=== PATIENT | female | born 1975 ===

== ENCOUNTER 2018-01-17 13:34 | Emergency (ER) | payer OTHER ==
[2018-01-17] MEDS ORDERED: Albuterol-Ipratrop 3 mg / 0.5 (3 ml) UD INH STA (14:46)
[2018-01-17] MEDS ORDERED: Albuterol-Ipratrop 3 mg / 0.5 (3 ml) UD ONE (15:05)
--- NOTE | 2018-01-17 15:11 | ED PDOC ---
HPI: SOB/CHF/COPD Time Seen by Provider: 01/17/18 14:27 Chief Complaint (Nursing): Shortness Of Breath Chief Complaint (Provider): shortness of breath History Per: Patient History/Exam Limitations: no limitations Onset/Duration Of Symptoms: Days (x5) Current Symptoms Are (Timing): Still Present Additional Complaint(s): 42 year old female with medical history of diabetes type I and asthma, presents to the emergency department with a complaint of shortness of breath associated with dry cough and chest tightness ongoing for 5 days. Denied any runny nose, sore throat, leg pain or swelling. Patient reported transient improvement with Albuterol inhaler and nebulizer treatments at home. PMD: Yue Raman MD Past Medical History Reviewed: Historical Data, Nursing Documentation, Vital Signs Vital Signs: Last Vital Signs Temp 98.7 F 01/17/18 14:04 Pulse 87 01/17/18 14:04 Resp 22 01/17/18 14:04 BP 134/87 01/17/18 14:04 Pulse Ox 100 01/17/18 16:27 - Medical History PMH: Asthma, Diabetes (type I), Gall Bladder Disease - Surgical History Surgical History: Denies: No Surg Hx Other surgeries: tubal ligation - Family History Family History: States: Diabetes, Hypertension Denies: Unknown Family Hx - Social History Current smoker - smoking cessation education provided: No Alcohol: None Drugs: Denies - Home Medications Home Medications: Ambulatory Orders Medication Instructions Recorded Ibuprofen [Motrin] 600 mg PO Q8 PRN #6 tab 03/13/15 oxyCODONE/Acetaminophen [Percocet 1 ea PO BID PRN #8 tab 03/13/15 5/325 mg Tab] Albuterol 0.083% [Albuterol 3 ml IH Q4 PRN #50 neb 01/17/18 Sulfate 3 Ml] Prednisone 50 mg PO DAILY #4 tablet 01/17/18 - Allergies Allergies/Adverse Reactions: Allergies Allergy/AdvReac Type Severity Reaction Status Date / Time No Known Allergies Allergy Verified 01/17/18 14:04 Review of Systems ROS Statement: Except As Marked, All Systems Reviewed And Found Negative ENT: Negative for: Nose Discharge, Throat Pain Cardiovascular: Positive for: Chest Pain (tightness) Respiratory: Positive for: Cough (dry), Shortness of Breath Musculoskeletal: Negative for: Leg Pain (or swelling) - ECG O2 Sat by Pulse Oximetry: 100 (RA) Pulse Ox Interpretation: Normal Medical Decision Making Medical Decision Making: Initial Impression: URI; Asthma exacerbation Initial Plan: * Urine dipstick * CXR * Duoneb 3ml INH * Solu-medrol 125mg IM * Influenza A B Time: 1515 --Rapid flu: positive for influenza A. Time: 1555 --CXR FINDINGS: LUNGS: No active pulmonary disease. PLEURA: No significant pleural effusion identified. No pneumothorax apparent. CARDIOVASCULAR: Normal. OSSEOUS STRUCTURES: No significant abnormalities. VISUALIZED UPPER ABDOMEN: Normal. OTHER FINDINGS: None. IMPRESSION: No active disease. Time: 1600 --Upon provider reevaluation, patient is feeling better, medically stable and requires no further treatment in the ED at this time. Provider discussed with patient the ineffectiveness of Tamiflu at this time since patient is on day 4 of illness. Advised plenty of rest, fluids and symptomatic treatment. Patient will be discharged home with Rx for Albuterol 3ml INH. Counseling was provided and all questions were answered regarding diagnosis and need for follow up with PMD. There is agreement to discharge plan. Return if symptoms persist or worsen. Clinical Impression: Influenza; Asthma exacerbation Scribe Attestation: Documented by Grace Dick, acting as a scribe for Dianna Javier MD. Provider Scribe Attestation: All medical record entries made by the Scribe were at my direction and personally dictated by me. I have reviewed the chart and agree that the record accurately reflects my personal performance of the history, physical exam, medical decision making, and the department course for this patient. I have also personally directed, reviewed, and agree with the discharge instructions and disposition. Disposition - Clinical Impression Clinical Impression: Influenza, Asthma exacerbation - Patient ED Disposition Is Patient to be Admitted: No Counseled Patient/Family Regarding: Studies Performed, Diagnosis, Need For Followup, Rx Given - Disposition Referrals: Yue Raman MD [Family Provider] - 01/23/18 Disposition: Routine/Home Disposition Time: 16:00 Condition: IMPROVED Additional Instructions: REST AND DRINK PLENTY OF HYDRATING FLUIDS FOLLOW UP WITH DR RAMAN BY END OF WEEK OR EARLY NEXT WEEK. RETURN TO ER FOR WORSENING SYMPTOMS: SEVERE CHEST PAIN, INABILITY TO BREATH, FAINTING OR NEAR FAINTING OR ANY OTHER WORRISOME SYMPTOMS Prescriptions: Albuterol 0.083% [Albuterol Sulfate 3 Ml] 3 ml IH Q4 PRN #50 neb PRN Reason: asthma Prednisone 50 mg PO DAILY #4 tablet Instructions: Flu, Asthma in Adults Forms: [facility] ED School/Work Excuse
--- NOTE | 2018-01-17 15:57 | RAD ---
HISTORY: cough asthma COMPARISON: No prior. TECHNIQUE: Chest PA and lateral FINDINGS: LUNGS: No active pulmonary disease. PLEURA: No significant pleural effusion identified. No pneumothorax apparent. CARDIOVASCULAR: Normal. OSSEOUS STRUCTURES: No significant abnormalities. VISUALIZED UPPER ABDOMEN: Normal. OTHER FINDINGS: None. IMPRESSION: No active disease.
[2018-01-17 17:10] VITALS: BP 120/70; PULSE 72; RESP 20; TEMP 98; O2SAT 98
== END 2018-01-17 17:24 | disposition home or self-care (01) ==
LOC: H.ER 13:34
DX: J11.1 Influenza due to unidentified influenza virus with other respiratory manifestations (principal); J45.901 Unspecified asthma with (acute) exacerbation; Z79.4 Long term (current) use of insulin
CPT/HCPCS: 71046; 81025; 87804; 96372; 99283; J2930